=== PATIENT | male | born 1990 | race Caucasian/White ===

== ENCOUNTER → 2017-01-23 | Outpatient (CLI) | payer OTHER ==
[~2017-01-23] MED LIST: HYDROCODONE-APA1 T56 PO; IBUPROFEN800 MG PO; NO MEDICATIONS
--- NOTE | ~2017-01-23 | XA32 ---
[facility] A Service of [facility] & [facility] RADIOLOGY TEXT RESULTS PATIENT: PAT WARD LOCATION: [facility] : [birth year] UNIT #: [id number] AGE: [address]: SELENA ANTOINE APRN SEX: M ORDER DR: [id number] [facility]. [place], [place] [address] [id number] O MR#: [id number] Acc #: [id number] NAME: PAT WARD. : 1990 SEX: M STUDY DATE/TIME: 01/23/2017 9:35 UNIT: [facility] ROOM: STUDY DESCRIPTION: XA Arthrogram Shoulder Lt Attending Physician: Selena Antoine Aprn Referring Physician: Jonas Aguilar M.D. Ordering Physician: Jonas Aguilar M.D. Primary Care Physician: Deni Gu Aprn MEDICAL IMAGING REPORT This report is preliminary unless electronic signature is present EXAM Left shoulder arthrogram INDICATIONS Left shoulder pain. Patient has had a history of multiple dislocations of the left shoulder. PROCEDURE The risks, benefits, and alternatives to the procedure were explained to the patient, and signed informed consent was obtained he was placed supine on the angiographic table he was prepped and draped in the usual sterile fashion. Time-out was performed as per protocol skin and subcutaneous tissues were anesthetized with buffered lidocaine, 22-gauge spinal needle was advanced into the joint space contrast was injected which confirmed location within the joint space, and subsequently a combination of lidocaine, Isovue 300 and MultiHance were injected into the joint space. No obvious rotator cuff tear was identified. Needle was removed and manual pressure was applied for hemostasis was obtained. Total fluoroscopy time 0.7 minutes and a total of 3 fluoroscopic images were obtained. IMPRESSION Technically successful fluoroscopically guided left shoulder arthrogram as noted above. Please see the patient's MRI report for full description of findings within the joint Dictated by... Ashley Meehan M.D. THIS IS AN ELECTRONICALLY VERIFIED REPORT Ashley Meehan M.D. at 01/29/2017 1:15 PM AFF/rnr [facility] A Service of [facility] & [facility] RADIOLOGY TEXT RESULTS PATIENT: PAT WARD [id number] : [birth year] UNIT #: [id number] AGE: [address]: SELENA ANTOINE APRN SEX: M ORDER DR: TD: 01/24/2017 04:31 JOB #: [id number] MEDICAL IMAGING REPORT COPY
--- NOTE | ~2017-01-23 | MR190 ---
[facility] A Service of [facility] RADIOLOGY TEXT RESULTS PATIENT: PAT WARD LOCATION: [facility] : 91 UNIT #: [id number] AGE: [address]: SELENA ANTOINE APRN SEX: M ORDER DR: [id number] [facility] [address] [facility] [place], [place] [address] [id number] O MR#: [id number] Acc #: [id number] NAME: PAT WARD : 1990 SEX: M STUDY DATE/TIME: 01/23/2017 10:12 UNIT: [facility] ROOM: STUDY DESCRIPTION: MR Shoulder Arthrogram Lt Attending Physician: Selena Antoine Aprn Referring Physician: Jonas Aguilar M.D. Primary Care Physician: Deni Gu Aprn MRI CENTER REPORT This report is preliminary unless electronic signature is present. EXAM MRI arthrogram left shoulder 01/23/2017 HISTORY Order states MRI arthrogram left shoulder. Left shoulder dislocation. History of Bankart repair and Remplissage November 2014. Evaluate integrity of repair. 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 First surgery in 2006 and again in 2014. Left shoulder dislocated 01/10/2017. Technologist notes that Dr. Aguilar instructed him not to raise his arm above his head as this is when it dislocates. No ABER sequence was obtained. First surgery [facility] 2006. Second surgery at [facility]. COMPARISON STUDIES Comparison - left shoulder arthrogram 01/23/2017, outside plain films 01/10/2017 [facility] pre and post reduction, left shoulder arthrogram 05/15/2008 and MRI arthrogram 10/31/2014 Operative report [facility] 06/30/2008 (open Bankart surgery Ismael Underwood M.D). TECHNIQUE Multiple series were performed after the fluoroscopic injection of dilute gadolinium contrast. As above, the patient could not position for the abduction external rotation position sequence. The most recent operative report is not available for comparison. FINDINGS The AC joint demonstrates minimal capsuloligamentous thickening and minimal spurring of the distal clavicle. Coracoacromial and coracoclavicular ligaments are intact. Supraspinatus, infraspinatus, and teres minor tendons are intact and there is no muscle atrophy. [facility]. [facility] A Service of [facility] RADIOLOGY TEXT RESULTS PATIENT: PAT WARD LOCATION: [facility] : 91 UNIT #: [id number] AGE: [address]: SELENA ANTOINE APRN SEX: M ORDER DR: There is contrast communication between the anterior inferior glenohumeral capsuloligamentous complex and the subcoracoid bursa just anterior to the subscapularis tendon. This was not present on the study of 10/30/2014. The defect measures approximately 11 mm in craniocaudal dimension by 12 mm in transverse dimension. There may be limited tear of the inferior aspect of the subscapularis tendon but there is no muscle atrophy. Postoperative changes of the subscapularis tendon are similar to the prior study of 10/30/2014. Hill-Sachs chronic impaction deformity is noted. Postoperative screw tracks in the Hill-Sachs defect are compatible with reported Remplissage procedure. Contrast fills the Hill-Sachs defect without definite visible capsular or infraspinatus extension into the osseous defect. I would be happy to re-review the exam with the more recent operative report if made available. Biceps anchor, biceps tendon, and superior labrum are within normal limits. Posterior labrum appears intact. There is extensive postoperative change along the anterior glenoid rim from prior Bankart repair. Contrast partially undermines a globular prominent capsuloligamentous complex concerning for incomplete tear/incomplete detachment. Chronic osseous deformity/defect in the anterior inferior glenoid appears somewhat more prominent than on 10/30/2014. The patient has a capacious axillary pouch. There is no humeral avulsion of the glenohumeral ligaments. No humeral head chondral/osteochondral lesion or loose body is noted. There is cartilage loss/attenuation in the region of the Bankart lesion. There is no marrow lesion or fracture. IMPRESSION 1. Comparison is made to numerous prior studies and the 2007 operative report. The 2014 operative report is not available for direct correlation. 2. Large Hill-Sachs deformity has a chronic appearance but is filled with contrast in this patient reportedly status post Remplissage procedure. There is no significant capsular or infraspinatus "filling in" of the Hill-Sachs defect. 3. 12 x 11 mm defect/tear in the anterior inferior capsuloligamentous complex, probably involving the inferior most aspect of the subscapularis tendon, allowing contrast to extend into the subcoracoid bursa. 4. Extensive postoperative changes of the subscapularis are similar to STS. [facility] A Service of [facility] RADIOLOGY TEXT RESULTS PATIENT: PAT WARD LOCATION: [facility] : 91 UNIT #: [id number] AGE: [address]: SELENA ANTOINE APRN SEX: M ORDER DR: the study of 10/30/2014 from the initial surgery. 5. Postoperative changes of Bankart repair with contrast partially undermining a large globular capsuloligamentous focus adjacent to the Bankart osseous defect suggestive of incomplete detachment. The remainder of the labrum is intact. 6. Capacious axillary recess. No loose body is seen. Dictated by... Angie Leiva M.D. THIS IS AN ELECTRONICALLY VERIFIED REPORT Angie Leiva M.D. at 01/27/2017 9:21 AM Sander TD: 01/26/2017 15:44 JOB #: [id number] MRI CENTER REPORT COPY
== END | disposition home or self-care (01) ==
LOC: CIVR 08:46
DX: S43.085A Other dislocation of left shoulder joint, initial encounter (principal); M21.822 Other specified acquired deformities of left upper arm; Z98.890 Other specified postprocedural states
CPT/HCPCS: 73040; 73222; 77002; Q9967